=== PATIENT | female | born 1960 | race Two or more races ===

== ENCOUNTER 2019-08-18 17:16 | Emergency (ER) | payer OTHER ==
[~2019-08-18] VITALS: Ht 162.6 cm; Wt 77.0 kg
[2019-08-18 18:36] VITALS: BP 141/93
== END 2019-08-18 18:38 | disposition left against medical advice (07) ==
LOC: ER 17:16
DX: R51 Headache (principal); F41.9 Anxiety disorder, unspecified; E11.65 Type 2 diabetes mellitus with hyperglycemia; I10 Essential (primary) hypertension
CPT/HCPCS: 99283